=== PATIENT | female | born 1955 | race Caucasian/White ===

== ENCOUNTER 2024-02-21 12:50 | Emergency (ER) | payer MEDICARE, OTHER, SELFPAY ==
[2024-02-21 12:53] VITALS: BP 167/84; PULSE 88; RESP 18; TEMP 36.4; O2SAT 98; BMI 30.7
[2024-02-21 13:21] VITALS: PULSE 85; O2SAT 99
[2024-02-21 13:22] VITALS: BP 137/76; PULSE 84; O2SAT 98
[2024-02-21 13:30] VITALS: PULSE 85; O2SAT 95
[2024-02-21 13:33] LABS: Add Manual Diff / Slide Review NO; Basophils Absolute Auto 100 /uL (0-100); Eosinophils Absolute Auto 200 /uL (0-450); Eosinophils Percent Auto 3.2 % (2-4); Hematocrit 43.2 % (36-46); Hemoglobin 14.1 g/dL (12.0-16.0); Lymphocytes Absolute Auto 1800 /uL (1100-4500); Lymphocytes Percent Auto 30.5 % (25-40); Mean Corpuscular HGB Conc 32.7 % (30-36); Mean Corpuscular Volume 82.5 fL (80-100); Monocytes Absolute Auto 500 /uL (0-900); Monocytes Percent Auto 7.9 % (3-14); Neutrophils Absolute Auto 3400 /uL (1500-7000); Neutrophils Percent Auto 57.4 % (50-75); Platelet Count 359 X10^3/uL (150-400); Red Blood Cell Count 5.23 X10^6/uL (4.0-5.2); Red Cell Distribution Width 13.4 % (11.6-14.8); White Blood Cell Count 5.9 X10^3/uL (4.5-11.0)
[2024-02-21 13:39] LABS: Alanine Aminotransferase 18 IU/L (<35); Albumin 4.8 g/dL (3.5-5.0); Albumin Globulin Ratio 1.7 (1.0-2.8); Alkaline Phosphatase 68 U/L (38-126); Aspartate Aminotransferase 25 IU/L (14-36); BUN Creatinine Ratio 17.9 (6-22); Bilirubin Total 0.7 mg/dL (0.2-1.3); Blood Urea Nitrogen 12 mg/dL (7-17); Calcium 9.6 mg/dL (8.4-10.2); Carbon Dioxide 22 mmol/L (22-32); Chloride 108 mmol/L (98-107); Estimated Glomerular Filt Rate > 60 mL/min (>60); Globulin 2.9 g/dL (1.7-4.1); Glucose 130 mg/dL (80-110); HEMOLYSIS < 15 (0-50); Potassium 3.8 mmol/L (3.4-5.1); Sodium 138 mmol/L (137-145); Total Protein 7.7 g/dL (6.3-8.2)
[2024-02-21 14:00] VITALS: BP 127/80; PULSE 83; O2SAT 98
--- NOTE | 2024-02-21 14:05 | ED_ITS ---
HPI - Female Genitourinary General Chief complaint: Urogenital-Female Stated complaint: reaction to medication Time Seen by Provider: 02/21/24 14:04 Source: patient Mode of arrival: Ambulatory Limitations: no limitations History of Present Illness HPI Narrative: 68-year-old with several rounds of antibiotics for UTI. Patient had cultures at another facility. Patient states about a month ago she started having dysuria urgency and frequency, she had a positive urinalysis was started on cephalexin took it for 5 days did not have resolution of symptoms. Followed up had repeat urinalysis was given fosfomycin, and then was contacted that culture showed resistance and was started on cephalexin for 10 days total. Patient has continued to have some symptoms and repeat UA and started ofloxacin in. Patient has had 5 days total, she does have her culture which showed less than 10,000, organism was not identified and culture notes suspected skin contaminant. Patient was able to provide an actual copy of the culture for me to review. Patient states she thinks she maybe having a reaction to the Cipro, she is felt like her skin is tight she felt like she was starting to get hives and tightness in her eyes. She has had some nausea, no vomiting no chest pain no shortness of breath no wheezing. No hives or rash that she is appreciated. She is her joints feel achy. She does note a little bit of suprapubic discomfort has had some frequency but no dysuria. She was told that she should follow up with Urology regarding her urine cultures. Related Data Allergies Allergy/AdvReac Type Severity Reaction Status Date / Time Sulfa (Sulfonamide Allergy eye Verified 02/21/24 12:53 Antibiotics) swelling clindamycin AdvReac Vomiting Verified 02/21/24 12:53 levofloxacin [From Levaquin] AdvReac body aches Verified 02/21/24 12:53 Review of Systems Review of Systems ROS Unobtainable: All systems reviewed & are unremarkable except as noted in HPI and below Patient History alcohol intake frequency: a few times a month Substance Use Type: does not use Exam Narrative Exam Narrative: GEN: well nourished, well appearing female, alert and oriented x 3, patient appears to be in mild distress. HEENT: Atraumatic, pupils are equal round reactive to light, extraocular movements are intact, nares are clear, there is no conjunctival pallor. Throat is clear without any exudates, erythema, tonsillar enlargement or uvular deviation, no hoarseness HEART: Regular rate and rhythm without murmur, clicks, rubs. LUNGS:Lungs clear to auscultation, no wheezes, rales, crackles, chest moves symmetrically ABD:bowel sounds normal, soft, non-tender, no guarding, rebound, rigidity, no masses noted, no hepatosplenomegaly :No CVA tenderness MSCL: Non-tender, no muscle atrophy, muscles strength 5/5 upper and lower extremities, full range of motion, normal gait NEURO:CN 2-12 intact, sensation normal SKIN: No rash, erythema or other skin changes Initial Vital Signs Initial Vital Signs: Vital Signs Temperature 97.5 F L 02/21/24 12:53 Pulse Rate 88 02/21/24 12:53 Respiratory Rate 18 02/21/24 12:53 Blood Pressure 167/84 H 02/21/24 12:53 Pulse Oximetry 98 02/21/24 12:53 Oxygen Delivery Method Room Air 02/21/24 12:53 Course Orders Ordered: ED Orders 02/21/24 13:15 Urine Culture Stat 02/21/24 13:22 CMP [Comprehensive Metabolic Panel] Stat Complete Blood Count AUTO DIFF Stat Vital Signs Vital signs: Vital Signs - 8 hr 02/21/24 12:53 02/21/24 13:21 02/21/24 13:22 Temperature 97.5 F L Pulse Rate 88 85 Respiratory Rate 18 Blood Pressure 167/84 H 137/76 Pulse Oximetry 98 99 Oxygen Delivery Method Room Air 02/21/24 13:22 02/21/24 13:30 02/21/24 14:00 Temperature Pulse Rate 84 85 83 Respiratory Rate Blood Pressure Pulse Oximetry 98 95 98 Oxygen Delivery Method 02/21/24 14:00 02/21/24 14:30 Temperature Pulse Rate 72 Respiratory Rate 16 Blood Pressure 127/80 Pulse Oximetry 97 Oxygen Delivery Method Room Air MDM - Female Genitourinary Lab Data 02/21/24 13:22 02/21/24 13:22 Labs: Lab Results 02/21/24 Range/Units 13:22 WBC 5.9 (4.5-11.0) X10^3/uL RBC 5.23 H (4.0-5.2) X10^6/uL Hgb 14.1 (12.0-16.0) g/dL Hct 43.2 (36-46) % MCV 82.5 (80-100) fL MCH 27.0 (26-34) PG MCHC 32.7 (30-36) % RDW 13.4 (11.6-14.8) % Plt Count 359 (150-400) X10^3/uL Neut % (Auto) 57.4 (50-75) % Lymph % (Auto) 30.5 (25-40) % [place] % (Auto) 7.9 (3-14) % Eos % (Auto) 3.2 (2-4) % Baso % (Auto) 1.0 (0-2) % Neut # (Auto) 3400 (7535-0165) /uL Lymph # (Auto) 1800 (0155-3593) /uL [place] # (Auto) 500 (0-900) /uL Eos # (Auto) 200 (0-450) /uL Baso # (Auto) 100 (0-100) /uL Sodium 138 (137-145) mmol/L Potassium 3.8 (3.4-5.1) mmol/L Chloride 108 H (98-107) mmol/L Carbon Dioxide 22 (22-32) mmol/L BUN 12 (7-17) mg/dL Creatinine 0.67 (0.52-1.04) mg/dL Estimated GFR > 60 (>60) mL/min BUN/Creatinine Ratio 17.9 (6-22) Glucose 130 H (80-110) mg/dL Calcium 9.6 (8.4-10.2) mg/dL Total Bilirubin 0.7 (0.2-1.3) mg/dL AST 25 (14-36) IU/L ALT 18 (<35) IU/L Alkaline Phosphatase 68 (38-126) U/L Total Protein 7.7 (6.3-8.2) g/dL Albumin 4.8 (3.5-5.0) g/dL Globulin 2.9 (1.7-4.1) g/dL Albumin/Globulin Ratio 1.7 (1.0-2.8) Urine Dip Bedside Urine Glucose Negative Bedside Urine Bilirubin - Negative Bedside Urine Ketone - Negative Urine Specific [place] 1.010 Bedside Urine Occult Blood - Negative Bedside Urine pH 6.0 Bedside Urine Protein - Negative Bedside Urine Urobilinogen - Negative Bedside Urine Nitrite - Negative Bedside Urine Leukocytes - Negative Esterase MDM Narrative Medical decision making narrative: 68-year-old female with frequency, was having dysuria but that is improved continue sensation of urgency. Patient does not have any sensation of retention. No fevers she has not been septic or toxic. Presents today she has had she was maybe having reaction in the Cipro which he has been on for last 5 days. Unclear if her symptoms are truly allergic reaction no rash, no hives or other skin changes no shortness of breath chest pain or other GI or symptoms. She has not having any anaphylactic symptoms. Discussed with patient to stop her ciprofloxacin. She has 2 culture reports she provided 1 showed Klebsiella that was about 50,000 or less, she then had a repeat culture most recently that showed less than 10,000 organisms, not identified and notes in the comments that likely skin contaminant per the culture report itself. These are both from outside facilities but patient has a copy of each. Labs show white count of 5.9 hemoglobin of 14 platelets of 359. Sodium 138 potassium 3.8 chloride of 108 CO2 22 BUN 12 creatinine 0.67, glucose of 130. LFTs are negative. Point of care urine is negative. Based on patient's symptoms plan to stop Cipro, she has been referred to Urology which I think is appropriate to evaluate for possible interstitial cystitis but we will send urine today for culture, urine today was negative this can be to confirm patient's having any actual infection. Discharge Plan Departure Patient Disposition: Home Clinical Impression: Urinary urgency Activity Restrictions/Additional Instructions: Stop your ciprofloxacin. Based on your most recent culture do not think you require any antibiotics at this time. Your urine sample today was negative but was sent for culture this takes 48-72 hours to result if positive you will be contacted with the results to start antibiotics if negative we will not contact you. I do think he might benefit from following up with Urology, sometimes individuals can have UTI type symptoms secondary to interstitial cystitis or issues with function of the bladder. Please return for fevers, new or worsening abdominal back or flank pain, vomiting, new rash or skin changes, inability or difficulty with urination, black or bloody stools or other new or concerning changes. Referrals: Kamron Monet MD [Physician] - Stand Alone Forms: Patient Portal/API
[2024-02-21 14:30] VITALS: PULSE 72; RESP 16; O2SAT 97
== END 2024-02-21 15:02 | disposition home or self-care (01) ==
PROVIDERS: Emergency Provider Emergency Medicine
DX: R39.15 Urgency of urination (principal)
CPT/HCPCS: 36415; 80053; 81003; 85025; 87086; 99283

== ENCOUNTER → 2025-02-11 09:48 | Outpatient (CLI) | payer MEDICARE, OTHER, SELFPAY | PROVIDERS: PCP Family Medicine; Visit Provider Registered Nurse | DX: R30.0 Dysuria (principal) | CPT/HCPCS: 81002; 87077; 87086; 87186 ==

== ENCOUNTER → 2025-05-05 15:09 | Outpatient (CLI) | payer MEDICARE, OTHER, SELFPAY ==
--- NOTE | 2025-05-05 17:56 | DI.NM.S_ITS ---
DATE OF SERVICE: 05/05/2025 EXERCISE STRESS TEST INDICATIONS: Irregular heartbeat, shortness of breath. CARDIAC STRESS: The patient underwent exercise stress test under the supervision of an attending staff. He walked on Olvin protocol for about 4 minutes and 31 seconds, achieved maximum heart rate of 156, which was 103% of target heart rate. Resting blood pressure 140/90 and peak blood pressure 170/90. 7 METs of workload. SHARRON positive 24%. Chest was discontinued due to left knee pain and dyspnea. Baseline rhythm sinus with about 0.5 to [address] depression in inferior leads and lateral leads. During stress, no new convincing ischemic changes. Isolated PACs without any complex arrhythmias. No chest pain. The patient had shortness of breath during exercise. Oxygen saturation 97% at peak exercise. Normal recovery. CONCLUSION: Exercise stress test did not reveal any obvious inducible ischemia. Baseline nonspecific ST-T changes. Diminished exercise tolerance. Normal hemodynamic response. Some isolated PACs without any complex arrhythmias. No chest pain. The patient had shortness of breath during exercise with oxygen saturation 97% at peak exercise. As far as exercise stress test is concerned, overall this is a low-risk exercise stress test. Correlate clinically. Lina Smith - NAFISA/jorge/VIBHA doc#: [id number]/job#: [id number] dd: 05/05/2025 17:39:00 dt: 05/05/2025 17:50:00 DICTATING /COPIES TO: Silverio Fowler MD COPIES MNE: SYMONE;
== END ==
PROVIDERS: PCP Family Medicine; Referring Provider Family Medicine; Visit Provider Family Medicine
DX: R07.9 Chest pain, unspecified (principal)
CPT/HCPCS: 93017

== ENCOUNTER 2025-05-31 11:52 | Emergency (ER) | payer MEDICARE, OTHER, SELFPAY ==
[2025-05-31] VITALS (13 sets, daily range): BP systolic 110–174; BP diastolic 60–97; PULSE 53–70; RESP 4–50; TEMP 36.1; O2SAT 95–97; BMI 29.0
--- NOTE | 2025-05-31 12:03 | EKG_ITS ---
[address] [address] Test Date: 2025-05-31 Pat Name: Lnia Smith Department: Room: Gender: Female Actuarial Director: MONO : 1955 Requested By: Order Number: [id number] Reading MD: Melquiades Garcia Measurements Intervals [place] Rate: 60 P: 40 MS: 148 QRS: -2 QRSD: 92 T: 18 QT: 410 QTc: 410 Interpretive Statements Normal sinus rhythm Electronically Signed On 06-01-2025 17:05:40 PDT by Melquiades Garcia
--- NOTE | 2025-05-31 12:03 | DI.RAD.S_ITS ---
PROCEDURE: XR CHEST 1V INDICATIONS: Chest Pain TECHNIQUE: One view of the chest was acquired. COMPARISON: None. FINDINGS: Surgical changes and devices: None. Lungs and pleura: Lungs are clear. No pleural effusions or pneumothorax. Mediastinum: Mediastinal contours appear normal. Heart size is normal. Bones and chest wall: No suspicious bony lesions. Overlying soft tissues appear unremarkable. IMPRESSION: No acute cardiopulmonary abnormality is seen. Dictated by: Prakash Evans M.D. on 05/31/2025 at 12:55 Approved by: Prakash Evans M.D. on 05/31/2025 at 12:55
--- NOTE | 2025-05-31 12:09 | ED.CHESTPAIN ---
HPI - Chest Pain General Chief Complaint: Chest Pain Stated Complaint: Chest pain , off and on x 2 months Time Seen by Provider: 05/31/25 12:06 Source: patient Mode of arrival: Ambulatory Limitations: no limitations History of Present Illness HPI narrative: 61-year-old female history of hypertension, anxiety seen recently at [facility] with negative cardiac workup follow up by negative stress test seen by PCP who increased her propranolol blood pressure medicines and sertraline medicines still having chest pain this morning when she woke up radiating to the head and neck lightheadedness. She is also scheduled for CT head and neck by the PCP as outpatient tomorrow. Patient denies nausea vomiting diaphoresis back pain abdominal pain. Nothing makes it better or worse. Other than what is stated 14 point review of system is negative. Related Data Home Medications ?Medication ?Instructions ?Recorded ?Confirmed hydroxyzine pamoate 25 mg capsule 25 - 50 mg PO 3XD PRN anxiety 12/08/24 05/29/25 Previous Rx's ?Medication ?Instructions ?Recorded hydroxyzine HCl 10 mg tablet 10 mg PO BEDTIME #30 tabs 12/30/24 meloxicam 7.5 mg tablet 7.5 mg PO BID #180 tabs 02/06/25 methocarbamol 500 mg tablet 500 mg PO Q8H PRN muscle spasm #30 02/06/25 tabs losartan 50 mg tablet 50 mg PO BID #180 tabs 05/29/25 propranolol 20 mg tablet 20 mg PO BID PRN anxiety #20 tabs 05/29/25 sertraline 100 mg tablet 100 mg PO DAILY #60 tabs 05/29/25 Allergies Allergy/AdvReac Type Severity Reaction Status Date / Time Sulfa (Sulfonamide Allergy eye Verified 05/29/25 14:50 Antibiotics) swelling clindamycin AdvReac Vomiting Verified 05/29/25 14:50 levofloxacin (From Levaquin) AdvReac body aches Verified 05/29/25 14:50 Review of Systems Review of Systems ROS Unobtainable: All systems reviewed & are unremarkable except as noted in HPI and below Patient History Surgical History History of tonsillectomy History of foot surgery History of knee replacement Social History Smoking Status: Former smoker Smoking Status: Former smoker alcohol intake frequency: a few times a month Exam Narrative Exam Narrative: GENERAL: [69] year old patient appears stated age. Well-developed patient, in mild distress. HEAD: Atraumatic. Normocephalic. EYES: Pupils equal round and reactive. Extraocular motions intact. No scleral icterus. No injection or drainage. ENT: Nose without bleeding, purulent drainage. Throat without erythema, tonsillar hypertrophy or exudate. Airway patent. NECK: Trachea midline. Non tender CARDIOVASCULAR: Regular rate and rhythm without murmurs, gallops, or rubs. RESPIRATORY: Clear to auscultation. Breath sounds equal bilaterally. No wheezes, rales, or rhonchi. GASTROINTESTINAL: Abdomen soft, non-tender, nondistended. EXTREMITIES: No edema or joint tenderness. BACK: Nontender without deformity or crepitance. No flank tenderness. NEURO: AOx3. SKIN: No rash or erythema of visible areas Initial Vital Signs Initial Vital Signs: Vital Signs Temperature 97.0 F L 05/31/25 11:58 Pulse Rate 68 05/31/25 11:58 Respiratory Rate 16 05/31/25 11:58 Blood Pressure 174/97 H 05/31/25 11:58 Pulse Oximetry 97 05/31/25 11:58 Oxygen Delivery Method Room Air 05/31/25 11:58 Scores HEART Score Heart Score history: Slightly Suspicious Heart Score EKG: Normal Heart Score Age: > or = 65 years old Heart Score risk factors: 1-2 risk factors Heart Score troponin: < or = to normal limit Heart Score Total: 3 Course Orders Ordered: ED Orders 05/31/25 12:03 XR chest 1V Stat EKG-12 Lead Stat 05/31/25 12:18 Complete Blood Count AUTO DIFF Stat Comprehensive Metabolic Panel Stat Lipase Stat Magnesium Stat NT-proBNP (BNP-Adult 18+) Stat PTT Partial Thromboplastin Luis Stat Prothrombin Time INR Stat Troponin & CK Cardiac Panel Stat 05/31/25 12:39 CT angio head and neck Stat CT head/brain wo con Stat Discontinued Medications Aspirin (Aspirin 81 Mg Chew Tab) 324 mg PO NOW ONE Stop: 05/31/25 12:04 Last Admin: 05/31/25 12:34 Dose: 324 mg Documented By: DWIGHT Nitroglycerin (Nitroglycerin 0.4 Mg Sl Tab) 0.4 mg SL NOW ONE Stop: 05/31/25 12:24 Last Admin: 05/31/25 12:34 Dose: 0.4 mg Documented By: SGF Vital Signs Vital signs: Vital Signs - 8 hr 05/31/25 11:58 05/31/25 12:09 05/31/25 12:10 Temperature 97.0 F L Pulse Rate 68 Respiratory Rate 16 Blood Pressure 174/97 H 174/78 H Pulse Oximetry 97 96 Oxygen Delivery Method Room Air 05/31/25 12:10 05/31/25 12:30 05/31/25 12:34 Temperature Pulse Rate 64 62 57 L Respiratory Rate 28 H 15 Blood Pressure 174/78 H Pulse Oximetry 97 96 Oxygen Delivery Method 05/31/25 12:36 05/31/25 12:36 Temperature Pulse Rate 60 Respiratory Rate 20 Blood Pressure 168/87 H Pulse Oximetry 97 Oxygen Delivery Method MDM - Chest Pain Lab Data 05/31/25 12:18 05/31/25 12:18 Labs: Lab Results 05/31/25 Range/Units 12:18 WBC 5.8 (4.5-11.0) X10^3/uL RBC 5.32 H (4.0-5.2) X10^6/uL Hgb 14.2 (12.0-16.0) g/dL Hct 42.8 (36-46) % MCV 80.5 (80-100) fL MCH 26.7 (26-34) PG MCHC 33.2 (30-36) % RDW 13.9 (11.6-14.8) % Plt Count 367 (150-400) X10^3/uL Neut % (Auto) 59.8 (50-75) % Lymph % (Auto) 25.9 (25-40) % [place] % (Auto) 9.6 (3-14) % Eos % (Auto) 3.9 (2-4) % Baso % (Auto) 0.8 (0-2) % Neut # (Auto) 3400 (0909-0874) /uL Lymph # (Auto) 1500 (8908-3285) /uL [place] # (Auto) 600 (0-900) /uL Eos # (Auto) 200 (0-450) /uL Baso # (Auto) 0 (0-100) /uL PT 11.0 (9.4-12.5) SECONDS INR 1.0 (0.9-1.3) APTT 30 (25.1-36.5) SECONDS Sodium 137 (137-145) mmol/L Potassium 4.3 (3.4-5.1) mmol/L Chloride 105 (98-107) mmol/L Carbon Dioxide 23 (22-32) mmol/L BUN 13 (7-17) mg/dL Creatinine 0.68 (0.52-1.04) mg/dL Estimated GFR > 60 (>60) mL/min BUN/Creatinine Ratio 19.1 (6-22) Glucose 102 H (70-99) mg/dL Calcium 9.4 (8.4-10.2) mg/dL Magnesium 2.2 (1.6-2.3) mg/dL Total Bilirubin 0.8 (0.2-1.3) mg/dL AST 26 (14-36) IU/L ALT 18 (<35) IU/L Alkaline Phosphatase 89 (38-126) U/L Total Creatine Kinase 58 (30-135) U/L Troponin I < 0.012 (0.01-0.034) ng/mL NT-Pro-B Natriuret Pep 191 H (<125) pg/mL Total Protein 7.6 (6.3-8.2) g/dL Albumin 4.7 (3.5-5.0) g/dL Globulin 2.9 (1.7-4.1) g/dL Albumin/Globulin Ratio 1.6 (1.0-2.8) Lipase 71 (23-300) U/L Imaging Data Extremity x-ray #1: Radiologist's Impression: [place] [address] Nuclear Medicine Report Signed Patient: Lina Smith MR#: [id number] : 1955 Acct:[id number] Age/Sex: 69 / F Date of Service: 05/05/25 Loc: NUC Accession Number: [id number] Procedure: Exercise treadmill NON NUC Ordering Provider: Caridad Hull MD DATE OF SERVICE: 05/05/2025 EXERCISE STRESS TEST INDICATIONS: Irregular heartbeat, shortness of breath. CARDIAC STRESS: The patient underwent exercise stress test under the supervision of an attending staff. He walked on Olvin protocol for about 4 minutes and 31 seconds, achieved maximum heart rate of 156, which was 103% of target heart rate. Resting blood pressure 140/90 and peak blood pressure 170/90. 7 METs of workload. SHARRON positive 24%. Chest was discontinued due to left knee pain and dyspnea. Baseline rhythm sinus with about 0.5 to [address] depression in inferior leads and lateral leads. During stress, no new convincing ischemic changes. Isolated PACs without any complex arrhythmias. No chest pain. The patient had shortness of breath during exercise. Oxygen saturation 97% at peak exercise. Normal recovery. CONCLUSION: Exercise stress test did not reveal any obvious inducible ischemia. Baseline nonspecific ST-T changes. Diminished exercise tolerance. Normal hemodynamic response. Some isolated PACs without any complex arrhythmias. No chest pain. The patient had shortness of breath during exercise with oxygen saturation 97% at peak exercise. As far as exercise stress test is concerned, overall this is a low-risk exercise stress test. Correlate clinically. Chest x-ray: Radiologist's Impression: [address] [address] XRay Report Signed Patient: Lina Smith MR#: [id number] : 1955 Acct:[id number] Age/Sex: 69 / F Date of Service: 05/31/25 Loc: ED Accession Number: [id number] Procedure: XR chest 1V Ordering Provider: Los Singh D.O. PROCEDURE: XR CHEST 1V INDICATIONS: Chest Pain TECHNIQUE: One view of the chest was acquired. COMPARISON: None. FINDINGS: Surgical changes and devices: None. Lungs and pleura: Lungs are clear. No pleural effusions or pneumothorax. Mediastinum: Mediastinal contours appear normal. Heart size is normal. Bones and chest wall: No suspicious bony lesions. Overlying soft tissues appear unremarkable. IMPRESSION: No acute cardiopulmonary abnormality is seen. ECG Data Interpretation: NSR HR 60 MS 148 QRS [address]-t wave change No previous EKG to compare MDM Narrative Medical decision making narrative: All lab work, vital signs, nurse triage note, medication list, previous ER visits, and all imaging studies reviewed. Two sets troponin normal BNP 191 glucose 102 sodium 137 potassium 4.3 chloride 105 CO2 23 BUN 13 creatinine 0.68 WBC 5.8 hemoglobin 14.2 platelet 367 chest x-ray showed no acute process. CT head showed no acute process. CTA showed left thyroid lobe is enlarged with multiple nodules. Differential diagnosis STEMI, NSTEMI, unstable angina, atrial fibrillation, aneurysm, mass, hemorrhage. EKG showed normal sinus rhythm with no STT wave changes. Heart score 3 Discharge Plan Departure Patient Disposition: Home Clinical Impression: Chest pain, Thyroid nodule Instructions: DI for Chest Pain Activity Restrictions/Additional Instructions: Return with new or worsening symptoms. Please follow up with your family doctor regarding thyroid nodule and need for ultrasound. 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 Prescriptions: No Action hydroxyzine pamoate 25 mg capsule 25 - 50 mg PO 3XD PRN (Reason: anxiety) hydroxyzine HCl 10 mg tablet 10 mg PO BEDTIME Qty: 30 2RF meloxicam 7.5 mg tablet 7.5 mg PO BID Qty: 180 3RF methocarbamol 500 mg tablet 500 mg PO Q8H PRN (Reason: muscle spasm) Qty: 30 3RF sertraline 100 mg tablet 100 mg PO DAILY Qty: 60 2RF propranolol 20 mg tablet 20 mg PO BID PRN (Reason: anxiety) Qty: 20 0RF losartan 50 mg tablet 50 mg PO BID Qty: 180 3RF Referrals: Caridad Hull MD [Primary Care Provider, Family Practice] Stand Alone Forms: Patient Portal/API
[2025-05-31 12:24] LABS: Add Manual Diff / Slide Review NO; Hematocrit 42.8 % (36-46); Hemoglobin 14.2 g/dL (12.0-16.0); Lymphocytes Absolute Auto 1500 /uL (1100-4500); Mean Corpuscular HGB Conc 33.2 % (30-36); Mean Corpuscular Hemoglobin 26.7 PG (26-34); Mean Corpuscular Volume 80.5 fL (80-100); Platelet Count 367 X10^3/uL (150-400)
[2025-05-31 12:30] LABS: INR 1.0 (0.9-1.3); Prothrombin Time 11.0 SECONDS (9.4-12.5)
[2025-05-31 12:33] LABS: PTT Partial Thromboplastin Tim 30 SECONDS (25.1-36.5)
[2025-05-31] MEDS: ASPIRIN 81 MG CHEW TAB 324 MG PO (12:34)
[2025-05-31] MEDS: NITROGLYCERIN 0.4 MG SL TAB SL (12:34)
[2025-05-31 12:35] LABS: Alanine Aminotransferase 18 IU/L (<35); Albumin 4.7 g/dL (3.5-5.0); Albumin Globulin Ratio 1.6 (1.0-2.8); Alkaline Phosphatase 89 U/L (38-126); Blood Urea Nitrogen 13 mg/dL (7-17); Calcium 9.4 mg/dL (8.4-10.2); Carbon Dioxide 23 mmol/L (22-32); Chloride 105 mmol/L (98-107); Creatine Kinase 58 U/L (30-135); Estimated Glomerular Filt Rate > 60 mL/min (>60); Globulin 2.9 g/dL (1.7-4.1); Glucose 102 mg/dL (70-99); HEMOLYSIS < 15 (0-50); Lipase 71 U/L (23-300); Magnesium 2.2 mg/dL (1.6-2.3); Potassium 4.3 mmol/L (3.4-5.1); Sodium 137 mmol/L (137-145); Total Protein 7.6 g/dL (6.3-8.2)
--- NOTE | 2025-05-31 12:39 | DI.CT.S_ITS ---
PROCEDURE: CT HEAD/BRAIN WO CON INDICATIONS: dizziness TECHNIQUE: Noncontrast 4.5 mm thick angled axial sections acquired from the foramen magnum to the vertex, with coronal and sagittal reformats. For radiation dose reduction, the following was used: automated exposure control, adjustment of mA and/or kV according to patient size. COMPARISON: None. FINDINGS: Image quality: Diagnostic. CSF spaces: Basal cisterns are patent. No extra-axial fluid collections. Ventricles are normal in size and shape. Brain: No midline shift. No intracranial mass effect or hemorrhage. Story- white matter interface is normal. Skull and face: Calvarium and visualized facial bones are intact, without suspicious lesions. Sinuses: Visualized sinuses and mastoids are clear. IMPRESSION: No acute intracranial pathology. Dictated by: Prakash Evans M.D. on 05/31/2025 at 13:16 Approved by: Prakash Evans M.D. on 05/31/2025 at 13:17
--- NOTE | 2025-05-31 12:39 | DI.CT.S_ITS ---
PROCEDURE: CT ANGIO HEAD AND NECK INDICATIONS: dizziness TECHNIQUE: After the administration of intravenous contrast, 1 mm thick sections acquired from the aortic arch through the [place] of [place]. 3-dimensional opsueyu-avaagjqsb-guipezufll (MIP) and/or volume rendering reformats were acquired of the central intracranial vasculature and neck separately. For radiation dose reduction, the following was used: automated exposure control, adjustment of mA and/or kV according to patient size. COMPARISON: None. FINDINGS: Image quality: Diagnostic. Cerebral CT Angiogram: Internal carotid arteries: No acute findings. Intracranial ICA are patent with no significant stenosis. No occlusion. No aneurysm. Anterior cerebral arteries: Unremarkable. No significant stenosis. No occlusion. No aneurysm. Middle cerebral arteries: Unremarkable. No significant stenosis. No occlusion. No aneurysm. Posterior cerebral arteries: Unremarkable. No significant stenosis. No occlusion. No aneurysm. Basilar artery: Unremarkable. No significant stenosis. No occlusion. No aneurysm. Vertebral arteries: Unremarkable as visualized. Dural venous sinuses: Unremarkable given phase of enhancement. Other: Arterial phase appearance of the brain parenchyma is unremarkable. Neck CT Angiogram: Internal carotid arteries: Unremarkable. No significant stenosis. No dissection or occlusion. Common carotid arteries: Unremarkable. No significant stenosis. No dissection or occlusion. External carotid arteries: Unremarkable. No occlusion. Vertebral arteries: Unremarkable. No significant stenosis. No dissection or occlusion. Aortic Arch and Mediastinum: Partially visualized aortic arch unremarkable without evidence of aneurysm. Origins of the great vessels unremarkable. Other: Left thyroid lobe is enlarged with multiple nodules. IMPRESSION: No significant intracranial arterial abnormality is seen. No significant abnormality is seen within the arteries of the neck. Left thyroid lobe is enlarged with multiple nodules. Recommend nonurgent thyroid ultrasound. Any quantitative measurements of stenosis were performed using NASCET criteria. Dictated by: Prakash Evans M.D. on 05/31/2025 at 13:17 Approved by: Prakash Evans M.D. on 05/31/2025 at 13:21
[2025-05-31 12:47] LABS: NT-proBNP (BNP-Adult 18+) 191 pg/mL (<125); Troponin I < 0.012 ng/mL (0.01-0.034)
[2025-05-31 13:49] LABS: Troponin I < 0.012 ng/mL (0.01-0.034)
== END 2025-05-31 14:13 | disposition home or self-care (01) ==
PROVIDERS: Emergency Provider Family Medicine; PCP Family Medicine
DX: R07.9 Chest pain, unspecified (principal); E04.1 Nontoxic single thyroid nodule; R42 Dizziness and giddiness; M54.2 Cervicalgia; R06.02 Shortness of breath
CPT/HCPCS: 36415; 70450; 70496; 70498; 71045; 80053; 81003; 82550; 83690; 83735; 83880; 84484; 85025; 85610; 85730; 93005; 99284; Q9967

== ENCOUNTER → 2025-06-02 13:24 | Outpatient (CLI) | payer MEDICARE, OTHER, SELFPAY ==
--- NOTE | 2025-06-02 13:26 | DI.US.S_ITS ---
PROCEDURE: US THYROID INDICATIONS: THYROID NODULE ON CT TECHNIQUE: Real-time scanning was performed of the thyroid gland, with image documentation. COMPARISON: None. FINDINGS: Thyroid: Right lobe measures 7.0 x 2.4 x 1.7 cm. Left lobe measures 7.3 x 2.6 x 1.9 cm. Isthmus is 0.7 cm thick. Echotexture is mildly heterogeneous with several subcentimeter spongiform nodules. Vaguely nodular thyroid tissue extends inferiorly off both lower poles.. Nodule number: 1 Location: Left isthmus Size: 2.6 x 2.0 x 0.9 cm. Composition: Solid Echogenicity: Isoechoic, heterogeneous Shape: wider than tall. Margins: Smooth Echogenic foci: No Total points: Three ACR TI-RADS category: Three Nodule number: 2 Location: Left lateral inferior pole Size: 1.2 x 0.8 x 0.5 cm. Composition: Spongiform Total points: 0 ACR TI-RADS category: 0 Nodule number: 3 Location: Right inferior pole Size: 2.0 x 1.7 x 1.2 cm. Composition: Solid Echogenicity: Isoechoic Shape: wider than tall. Margins: Smooth Echogenic foci: Colloid Total points: Three ACR TI-RADS category: Three IMPRESSION: Enlarged thyroid gland with a heterogeneous, nodular appearance, containing several spongiform nodules/colloid nodules. The isthmus nodule does not demonstrate significantly suspicious characteristics, but meets size criteria for FNA if desired. Alternatively, one year follow-up is recommended. ACR TI-RADS definitions and recommendations: TI-RADS 1 (benign): 0 points. FNA not needed. TI-RADS 2 (not suspicious): 2 points. FNA not needed. TI-RADS 3: 3 points. * FNA if 2.5 cm or larger, follow up if 1.5 cm or larger (at 1, 3, and 5 years). TI-RADS 4: 4-6 points. * FNA if 1.5 cm or larger, follow up if 1 cm or larger (at 1, 2, 3, and 5 years). TI-RADS 5: 7 points or more. * FNA if 1 cm or larger, follow up if 0.5 cm or larger (every year for 5 years). Dictated by: Trisha Mao M.D. on 06/03/2025 at 12:49 Approved by: Trisha Mao M.D. on 06/03/2025 at 13:04
== END ==
LOC: US 13:25
PROVIDERS: PCP Family Medicine; Referring Provider Family Medicine; Visit Provider Family Medicine
DX: E04.2 Nontoxic multinodular goiter (principal)
CPT/HCPCS: 76536

== ENCOUNTER → 2025-06-13 12:23 | Outpatient (CLI) | payer MEDICARE, OTHER, SELFPAY ==
[2025-06-13 13:21] LABS: Hemoglobin A1C% w Est Avg Glu 5.4 % (4.0-6.0)
[2025-06-13 14:09] LABS: TSH w/ Reflex to FT4 0.77 uIU/mL (0.47-4.68)
== END ==
PROVIDERS: PCP Family Medicine; Referring Provider Family Medicine; Visit Provider Family Medicine
DX: R73.09 Other abnormal glucose (principal); E04.1 Nontoxic single thyroid nodule
CPT/HCPCS: 36415; 83036; 84443

== ENCOUNTER → 2025-06-28 13:09 | Outpatient (CLI) | payer MEDICARE, OTHER, SELFPAY ==
--- NOTE | 2025-06-28 13:10 | DI.US.S_ITS ---
PROCEDURE: US FINE NEEDLE ASPIRATION
== END ==
PROVIDERS: PCP Family Medicine; Visit Provider Radiology Diagnostic Radiology
DX: E04.1 Nontoxic single thyroid nodule (principal)
CPT/HCPCS: 10005

== ENCOUNTER 2025-07-29 11:35 | Emergency (ER) | payer MEDICARE, OTHER, SELFPAY ==
[2025-07-29] VITALS (25 sets, daily range): BP systolic 110–161; BP diastolic 64–94; PULSE 58–87; RESP 13–49; TEMP 37; O2SAT 94–98; BMI 29.8
--- NOTE | 2025-07-29 11:44 | EKG_ITS ---
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
--- NOTE | 2025-07-29 11:44 | DI.RAD.S_ITS ---
PROCEDURE: XR CHEST 1V INDICATIONS: cp TECHNIQUE: One view of the chest was acquired. COMPARISON: [facility], CR, XR CHEST 1V, 05/31/2025, 12:19. FINDINGS: Surgical changes and devices: None. Lungs and pleura: Lungs are clear. No pleural effusions or pneumothorax. Mediastinum: Mediastinal contours appear normal. Heart size is prominent. Bones and chest wall: No suspicious bony lesions. Overlying soft tissues appear unremarkable. IMPRESSION: No acute pulmonary process. Dictated by: Diya Velázquez M.D. on 07/29/2025 at 12:53 Approved by: Diya Velázquez M.D. on 07/29/2025 at 12:54
--- NOTE | 2025-07-29 11:45 | ED.CHESTPAIN ---
HPI - Chest Pain General Chief Complaint: Chest Pain Stated Complaint: Chest pain (2-3 days ago) Time Seen by Provider: 07/29/25 11:46 History of Present Illness HPI narrative: This is a 69-year-old white female who presents to the emergency room with 2 days of left-sided chest pain described as pressure heaviness that radiates up the left side of her neck and to her left shoulder. The pain started spontaneously. There was no associated shortness of breath nausea vomiting or diaphoresis. Patient states that she recently had a abnormal stress test and was being referred to a accounts receivable bookkeeper as an outpatient. Prior to arrival the patient did take 2 sublingual nitros with some improvement in symptoms. Patient has not taken any aspirin today. There is no fevers chills cough hemoptysis abdominal pain nausea vomiting diarrhea. Related Data Home Medications ?Medication ?Instructions ?Recorded ?Confirmed hydroxyzine pamoate 25 mg capsule 25 - 50 mg PO 3XD PRN anxiety 12/08/24 06/27/25 Previous Rx's ?Medication ?Instructions ?Recorded hydroxyzine HCl 10 mg tablet 10 mg PO BEDTIME #30 tabs 12/30/24 meloxicam 7.5 mg tablet 7.5 mg PO BID #180 tabs 02/06/25 methocarbamol 500 mg tablet 500 mg PO Q8H PRN muscle spasm #30 02/06/25 tabs sertraline 100 mg tablet 100 mg PO DAILY #60 tabs 05/29/25 losartan 100 mg tablet 100 mg PO DAILY #90 tabs 06/13/25 propranolol 20 mg tablet 20 mg PO BID PRN anxiety #60 tabs 06/13/25 Allergies Allergy/AdvReac Type Severity Reaction Status Date / Time Sulfa (Sulfonamide Allergy eye Verified 06/13/25 11:24 Antibiotics) swelling clindamycin AdvReac Vomiting Verified 06/13/25 11:24 levofloxacin (From Levaquin) AdvReac body aches Verified 06/13/25 11:24 Review of Systems Review of Systems ROS Unobtainable: All systems reviewed & are unremarkable except as noted in HPI and below Patient History Surgical History History of tonsillectomy History of foot surgery History of knee replacement Social History Smoking Status: Former smoker alcohol intake frequency: a few times a month Exam Narrative Exam Narrative: GENERAL: patient appears stated age. Well-developed patient, in mild distress. HEAD: Atraumatic. Normocephalic. EYES: Pupils equal round and reactive. Extraocular motions intact. No scleral icterus. No injection or drainage. ENT: Nose without bleeding, purulent drainage. Throat without erythema, tonsillar hypertrophy or exudate. Airway patent. NECK: Trachea midline. Non tender CARDIOVASCULAR: Regular rate and rhythm without murmurs, gallops, or rubs. RESPIRATORY: Clear to auscultation. Breath sounds equal bilaterally. No wheezes, rales, or rhonchi. GASTROINTESTINAL: Abdomen soft, non-tender, nondistended. EXTREMITIES: No edema or joint tenderness. BACK: Nontender without deformity or crepitance. No flank tenderness. NEURO: AOx3. SKIN: No rash or erythema of visible areas Initial Vital Signs Initial Vital Signs: Vital Signs Temperature 98.6 F 07/29/25 11:45 Pulse Rate 80 07/29/25 11:45 Respiratory Rate 18 07/29/25 11:45 Blood Pressure 159/94 H 07/29/25 11:45 Pulse Oximetry 97 07/29/25 11:45 Oxygen Delivery Method Room Air 07/29/25 11:45 Course Orders Ordered: ED Orders 07/29/25 11:44 XR chest 1V Stat EKG-12 Lead Stat 07/29/25 11:53 Complete Blood Count AUTO DIFF Stat Comprehensive Metabolic Panel Stat Lipase Stat Lipid Panel Stat Magnesium Stat NT-proBNP (BNP-Adult 18+) Stat PTT Partial Thromboplastin Luis Stat Prothrombin Time INR Stat Troponin I Stat 07/29/25 13:53 Troponin I Stat Discontinued Medications Aspirin (Aspirin 81 Mg Chew Tab) 324 mg PO NOW ONE Stop: 07/29/25 11:44 Last Admin: 07/29/25 12:06 Dose: 324 mg Documented By: TIFFANY Atorvastatin Calcium (Atorvastatin 20 Mg Tablet) 80 mg PO NOW ONE Stop: 07/29/25 13:23 Last Admin: 07/29/25 13:40 Dose: 80 mg Documented By: JUS Enoxaparin Sodium (Enoxaparin 100 Mg/Ml Syringe) 85 mg 1 mg/kg (85 mg) SUBCUT NOW ONE Stop: 07/29/25 13:23 Last Admin: 07/29/25 13:40 Dose: 85 mg Documented By: JUS Nitroglycerin (Nitroglycerin Oint 1 Inch/Gm Oint...G.) 1 inch TOP NOW ONE Stop: 07/29/25 11:44 Last Admin: 07/29/25 13:28 Dose: Not Given Documented By: CTS Vital Signs Vital signs: Vital Signs - 8 hr 07/29/25 11:45 07/29/25 13:15 07/29/25 13:27 Temperature 98.6 F Pulse Rate 80 62 Respiratory Rate 18 Blood Pressure 159/94 H 134/75 Pulse Oximetry 97 96 Oxygen Delivery Method Room Air 07/29/25 13:30 07/29/25 14:00 07/29/25 14:30 Temperature Pulse Rate 61 58 L 59 L Respiratory Rate 14 16 Blood Pressure Pulse Oximetry 96 98 98 Oxygen Delivery Method 07/29/25 14:48 07/29/25 14:48 07/29/25 15:00 Temperature Pulse Rate 64 69 Respiratory Rate 18 18 Blood Pressure 147/73 H Pulse Oximetry 95 96 Oxygen Delivery Method 07/29/25 15:00 07/29/25 15:30 07/29/25 15:30 Temperature Pulse Rate 60 Respiratory Rate 16 Blood Pressure 139/79 142/75 H Pulse Oximetry 95 Oxygen Delivery Method MDM - Chest Pain Lab Data 07/29/25 11:53 07/29/25 11:53 Labs: Lab Results 07/29/25 07/29/25 Range/Units 11:53 13:53 WBC 5.3 (4.5-11.0) X10^3/uL RBC 5.29 H (4.0-5.2) X10^6/uL Hgb 14.1 (12.0-16.0) g/dL Hct 42.9 (36-46) % MCV 81.1 (80-100) fL MCH 26.7 (26-34) PG MCHC 32.9 (30-36) % RDW 14.0 (11.6-14.8) % Plt Count 326 (150-400) X10^3/uL Neut % (Auto) 55.2 (50-75) % Lymph % (Auto) 27.7 (25-40) % Burt % (Auto) 11.3 (3-14) % Eos % (Auto) 5.1 H (2-4) % Baso % (Auto) 0.7 (0-2) % Neut # (Auto) 2900 (2797-4147) /uL Lymph # (Auto) 1500 (0894-6588) /uL Burt # (Auto) 600 (0-900) /uL Eos # (Auto) 300 (0-450) /uL Baso # (Auto) 0 (0-100) /uL PT 10.7 (9.4-12.5) SECONDS INR 0.9 (0.9-1.3) APTT 29 (25.1-36.5) SECONDS Sodium 138 (137-145) mmol/L Potassium 4.4 (3.4-5.1) mmol/L Chloride 104 (98-107) mmol/L Carbon Dioxide 25 (22-32) mmol/L BUN 17 (7-17) mg/dL Creatinine 0.67 (0.52-1.04) mg/dL Estimated GFR > 60 (>60) mL/min BUN/Creatinine Ratio 25.4 H (6-22) Glucose 105 H (70-99) mg/dL Calcium 9.6 (8.4-10.2) mg/dL Magnesium 2.1 (1.6-2.3) mg/dL Total Bilirubin 0.8 (0.2-1.3) mg/dL AST 26 (14-36) IU/L ALT 19 (<35) IU/L Alkaline Phosphatase 100 (38-126) U/L Troponin I < 0.012 < 0.012 (0.01-0.034) ng/mL NT-Pro-B Natriuret Pep 116 (<125) pg/mL Total Protein 7.6 (6.3-8.2) g/dL Albumin 4.7 (3.5-5.0) g/dL Globulin 2.9 (1.7-4.1) g/dL Albumin/Globulin Ratio 1.6 (1.0-2.8) Triglycerides 126 (35-150) mg/dL Cholesterol 249 H (140-199) mg/dL LDL Cholesterol, Calc 142 H (<100) mg/dL HDL Cholesterol 82 H (40-60) mg/dL Lipase 63 (23-300) U/L [facility] Narrative Medical decision making narrative: Patient 12 lead EKG reveals sinus rhythm at 59 beats per minute normal axis no blocks no acute changes patient had chest x-ray read by the radiologist as negative patient's CBC within normal his chemistry with normal limits INR 0.9 troponin negative x2 lipase negative high LDL was 142 HDL was 82 heart score was 4. The patient had received the sublingual nitro prior to arrival a and O 324 of aspirin. I went back to re-evaluate the patient patient was still having some chest discomfort so she got the subcu Lovenox. Because of the elevated cholesterol she also got 80 of atorvastatin. I did discuss the case with the accounts receivable bookkeeper Dr. Gomez who agreed that the patient needed cardiac catheterization they also discussed the case with Dr. Renee the hospitalist who agreed to accept the patient in transfer. Differential diagnosis is ACS unstable angina atypical chest pain [place] Discharge Plan Departure Patient Disposition: [facility] Clinical Impression: ACS (acute coronary syndrome) Chest pain Qualifiers: Chest pain type: unspecified Qualified Code(s): R07.9 - Chest pain, unspecified Prescriptions: No Action hydroxyzine pamoate 25 mg capsule 25 - 50 mg PO 3XD PRN (Reason: anxiety) hydroxyzine HCl 10 mg tablet 10 mg PO BEDTIME Qty: 30 2RF propranolol 20 mg tablet 20 mg PO BID PRN (Reason: anxiety) Qty: 60 2RF losartan 100 mg tablet 100 mg PO DAILY Qty: 90 3RF meloxicam 7.5 mg tablet 7.5 mg PO BID Qty: 180 3RF methocarbamol 500 mg tablet 500 mg PO Q8H PRN (Reason: muscle spasm) Qty: 30 3RF sertraline 100 mg tablet 100 mg PO DAILY Qty: 60 2RF Referrals: Caridad Hull MD [Primary Care Provider, Family Practice]
[2025-07-29] MEDS: ASPIRIN 81 MG CHEW TAB 324 MG PO (12:06)
[2025-07-29 12:07] LABS: Add Manual Diff / Slide Review NO; Hematocrit 42.9 % (36-46); Hemoglobin 14.1 g/dL (12.0-16.0); Lymphocytes Absolute Auto 1500 /uL (1100-4500); Mean Corpuscular HGB Conc 32.9 % (30-36); Mean Corpuscular Hemoglobin 26.7 PG (26-34); Mean Corpuscular Volume 81.1 fL (80-100); Platelet Count 326 X10^3/uL (150-400)
[2025-07-29 12:12] LABS: INR 0.9 (0.9-1.3); Prothrombin Time 10.7 SECONDS (9.4-12.5)
[2025-07-29 12:15] LABS: PTT Partial Thromboplastin Tim 29 SECONDS (25.1-36.5)
[2025-07-29 12:16] LABS: Alanine Aminotransferase 19 IU/L (<35); Albumin 4.7 g/dL (3.5-5.0); Albumin Globulin Ratio 1.6 (1.0-2.8); Alkaline Phosphatase 100 U/L (38-126); Blood Urea Nitrogen 17 mg/dL (7-17); Calcium 9.6 mg/dL (8.4-10.2); Carbon Dioxide 25 mmol/L (22-32); Chloride 104 mmol/L (98-107); Cholesterol 249 mg/dL (140-199); Estimated Glomerular Filt Rate > 60 mL/min (>60); Globulin 2.9 g/dL (1.7-4.1); Glucose 105 mg/dL (70-99); HDL Cholesterol 82 mg/dL (40-60); HEMOLYSIS < 15 (0-50); Lipase 63 U/L (23-300); Magnesium 2.1 mg/dL (1.6-2.3); Potassium 4.4 mmol/L (3.4-5.1); Sodium 138 mmol/L (137-145); Total Protein 7.6 g/dL (6.3-8.2); Triglycerides 126 mg/dL (35-150)
[2025-07-29 12:27] LABS: NT-proBNP (BNP-Adult 18+) 116 pg/mL (<125); Troponin I < 0.012 ng/mL (0.01-0.034)
[2025-07-29] MEDS: ATORVASTATIN 20 MG TABLET 80 MG PO (13:40)
[2025-07-29] MEDS: ENOXAPARIN 100 MG/ML SYRINGE 85 MG SUBCUT (13:40)
[2025-07-29 14:38] LABS: Troponin I < 0.012 ng/mL (0.01-0.034)
--- NOTE | 2025-07-29 19:01 | PC.NURSE ---
Report given to KATALINA Haynes at [facility] @ [phone]. Room 4N bed 402-1.
== END 2025-07-29 20:47 | disposition short-term general hospital (02) ==
PROVIDERS: Emergency Provider Emergency Medicine; PCP Family Medicine
DX: I24.9 Acute ischemic heart disease, unspecified (principal); R07.89 Other chest pain
CPT/HCPCS: 36415; 71045; 80053; 80061; 83690; 83735; 83880; 84484; 85025; 85610; 85730; 93005; 96372; 99284; J1650